=== PATIENT | male | born 1965 | race Caucasian/White ===

== ENCOUNTER 2016-12-12 12:06 | Inpatient (IN) | payer OTHER ==
[2016-11-26 11:43] VITALS: BMI 38.0
--- NOTE | 2016-11-26 12:19 | PAT Medication Instructions ---
Service Date Nov 26, 2016. Current Home Medication List Albuterol Sulfate (Proair Respiclick), 2 PUFFS INH PRN Alprazolam (Xanax), 1 MG PO TID PRN for Anxiety Calcium Carbonate-Vitamin D (Calcium + D), 1 TAB PO QAM Clonazepam (Klonopin), 0.5 MG PO HS Divalproex Sodium (Depakote Er), 1 TAB PO BID Hydrocodone/Acetaminophen 10MG/325MG ([place] 10MG/325MG), 1 TAB PO Q4H PRN for Pain Metformin Hcl (Glucophage), 500 MG PO BID Prazosin Hcl (Prazosin), 1 MG PO HS Propranolol (Inderal), 20 MG PO BID Quetiapine Fumarate (Seroquel), 100 MG PO HS Ranitidine (Zantac), 150 MG PO HS Risperidone (Risperdal), 1 MG PO BID Rosuvastatin Calcium (Crestor), 20 MG PO QAM Sennosides-Docusate Sodium (Stool Softener), 1 TAB PO PRN Trazodone Hcl (Trazodone), 100 MG PO HS Medication Instructions For Your Scheduled Surgery Albuterol Sulfate (Proair Respiclick), 2 PUFFS INH PRN (only uses when sick) - Hold the following medications 48 hours prior to surgery: Metformin Hcl (Glucophage), 500 MG PO BID - Hold the following medications the morning of surgery: Sennosides-Docusate Sodium (Stool Softener), 1 TAB PO PRN Calcium Carbonate-Vitamin D (Calcium + D), 1 TAB PO QAM - Take the following medications the morning of surgery with a sip of water: Rosuvastatin Calcium (Crestor), 20 MG PO QAM Risperidone (Risperdal), 1 MG PO BID Propranolol (Inderal), 20 MG PO BID Hydrocodone/Acetaminophen 10MG/325MG ([place] 10MG/325MG), 1 TAB PO Q4H PRN for Pain (can take up to four hours prior to surgery if needed) Divalproex Sodium (Depakote Er), 1 TAB PO BID Alprazolam (Xanax), 1 MG PO TID PRN for Anxiety - Take the following medications as scheduled the night before surgery: Trazodone Hcl (Trazodone), 100 MG PO HS Risperidone (Risperdal), 1 MG PO BID Quetiapine Fumarate (Seroquel), 100 MG PO HS Ranitidine (Zantac), 150 MG PO HS Propranolol (Inderal), 20 MG PO BID Prazosin Hcl (Prazosin), 1 MG PO HS Hydrocodone/Acetaminophen 10MG/325MG ([place] 10MG/325MG), 1 TAB PO Q4H PRN for Pain Divalproex Sodium (Depakote Er), 1 TAB PO BID Clonazepam (Klonopin), 0.5 MG PO HS Alprazolam (Xanax), 1 MG PO TID PRN for Anxiety If you have any questions please call us at [phone] or [phone] ( [place]) or [phone]
--- NOTE | 2016-11-26 13:01 | DIAGNOSTIC IMAGING REPORT ---
CHEST PREADMISSION(PA/LAT) CLINICAL HISTORY: PAT COMPARISON STUDY: No previous studies for comparison. FINDINGS: The cardiac and mediastinal contours are normal. There is no evidence of focal pulmonary consolidation. There is no evidence of failure. No pleural effusions are visualized.[ IMPRESSION: No active disease in the chest. Electronically signed by: Rudy Warren M.D. 11/26/2016 12:59 PM Dictated Date/Time: 11/26/2016 12:59 PM
[2016-11-26 13:05] LABS: HEMATOCRIT 41.5 % (42-52); MEAN CELL VOLUME 88.1 fL (80-100); MEAN CORPUSCULAR HEMOGLOBIN 30.4 pg (25-34); MEAN CORPUSCULAR HGB CONC 34.5 g/dl (32-36); MEAN PLATELET VOLUME 9.9 fL (7.4-10.4); PLATELET COUNT 181 K/uL (130-400); RED BLOOD COUNT 4.71 M/uL (4.7-6.1)
[2016-11-26 13:07] LABS: URINE APPEARANCE CLEAR (CLEAR); URINE BILIRUBIN NEG (NEG); URINE COLOR YELLOW; URINE NITRITE NEG (NEG); URINE PH 5.5 (4.5-7.5); URINE SPECIFIC GRAVITY 1.023 (1.000-1.030); UROBILINOGEN NEG (NEG)
[2016-11-26 13:14] LABS: MANUAL MICROSCOPIC REQUIRED? NO; REVIEW REQ? NO
[2016-11-26 13:41] LABS: BUN/CREATININE RATIO 9.1 (10-20); CALCIUM 8.6 mg/dl (8.5-10.1); CREATININE 1.1 mg/dl (0.60-1.40); POTASSIUM 4.2 mmol/L (3.5-5.1)
[2016-11-26 14:33] LABS: BASO % 0.4 %; BASO ABS # 0.02 K/uL (0-0.2); COMPLETE YES; EOS % 1.5 %; IG% 0.4 %; LYMPH % 52.7 %; MONO % 9.5 %; NEUT % 35.5 %
[~2016-12-12] VITALS: Ht 180.3 cm; Wt 127.1 kg
[2016-12-12] VITALS (8 sets, daily range): BP systolic 100–147; BP diastolic 72–90; PULSE 64–92; TEMP 36.3–37.1; O2SAT 92–99; Ht 180.3 cm; Wt 127.1 kg
[2016-12-12] MEDS: LACTATED RINGER'S 1000ML 1,000 ML IV SCH ×3 (06:00→18:24)
--- NOTE | 2016-12-12 07:25 | History & Physical Bridge Note ---
H&P Re-Evaluation Bridge Note: I have examined the patient, reviewed the History & Physical and in the interval since the performance of the History & Physical I have noted the following changes of clinical significance: No changes noted
--- NOTE | 2016-12-12 07:26 | History and Physical ---
History & Physical Date Dec 12, 2016. Chief Complaint back and leg pain History of Present Illness The patient is a 51 year old male with complaints of Additional History Hepatic Disease: No Endocrine Disorder: No Kidney Disease: No Hypertension: No Heart Disease: No Bleeding Tendencies: No Infectious Diseases: No Allergies Coded Allergies: Atorvastatin (Verified Allergy, Intermediate, LE myalgias, 11/26/16) Home Medications Scheduled Albuterol Sulfate (Proair Respiclick), 2 PUFFS INH PRN Calcium Carbonate-Vitamin D (Calcium + D), 1 TAB PO QAM Clonazepam (Klonopin), 0.5 MG PO HS Divalproex Sodium (Depakote Er), 1 TAB PO BID Metformin Hcl (Glucophage), 500 MG PO BID Prazosin Hcl (Prazosin), 1 MG PO HS Propranolol (Inderal), 20 MG PO BID Quetiapine Fumarate (Seroquel), 100 MG PO HS Ranitidine (Zantac), 150 MG PO HS Risperidone (Risperdal), 1 MG PO BID Rosuvastatin Calcium (Crestor), 20 MG PO QAM Sennosides-Docusate Sodium (Stool Softener), 1 TAB PO PRN Trazodone Hcl (Trazodone), 100 MG PO HS Scheduled PRN Alprazolam (Xanax), 1 MG PO TID PRN for Anxiety Hydrocodone/Acetaminophen 10MG/325MG ([place] 10MG/325MG), 1 TAB PO Q4H PRN for Pain Physical Examination Skin: warm/dry, no rash Eyes: normal inspection, EOMI, sclerae normal ENT: normal ENT inspection, pharynx normal Head: normocephalic, atraumatic Neck: supple, no adenopathy, trachea midline Respiratory/Chest: lungs clear, normal breath sounds, no respiratory distress Cardiovascular: regular rate, rhythm, no edema, no murmur Abdomen / GI: normal bowel sounds, non tender Back: normal inspection Extremities: normal inspection, normal range of motion Neurologic/Psych: no motor/sensory deficits, alert, normal reflexes, oriented x 3 Diagnosis spinal stenosis Plan of Treatment decompression fusion L2-3
[~2016-12-12 12:06] MED LIST: ALBU18002 INH; ALPR-411 PO; CALC600T9 PO; CEFAZOLIN 3000 MG/65 ML D5W IV SCH; CLON0.5T3 PO; DIVA250T PO; FENTANYL CITRATE INJ 50 MCG/1 ML 2 ML VIAL ONE; GLC/500 PO; HYDR-4079 PO; MIDAZOLAM HCL 1 MG/ML 2ML VIAL ONE; PRAZ1CAP10 PO; PROP20TA67 PO; QUET1TAB34 PO; RISP1TAB68 PO; ROSU20TA PO; SENNTAB23 PO; TRAZ100T29 PO; ZNTT/150 PO
[2016-12-12] MEDS ORDERED: FENTANYL CITRATE INJ 50 MCG/1 ML 2 ML VIAL IV PRN (12:15)
[2016-12-12] MEDS ORDERED: ATROPINE SULFATE 0.1 MG/ML 5ML SYR IV PRN (12:15)
[2016-12-12] MEDS ORDERED: ONDANSETRON INJ 2 MG/ML 2 ML VIAL IV PRN ×2 (12:15→16:15)
[2016-12-12] MEDS ORDERED: MoRPHine SULFATE 10 MG/ML CARP/VIAL IV PRN (12:15)
[2016-12-12] MEDS ORDERED: EpHEDrine SULFATE INJ 50 MG/ML AMP IV PRN (12:15)
[2016-12-12] MEDS ORDERED: BUPIVACAINE/EPINEPHRINE 0.5% MPF 1:200,000 30 ML VIAL INJ ONE (15:04)
[2016-12-12] MEDS ORDERED: FLOSEAL HEMOSTATIC MATRIX 10ML TOP ONE (15:46)
[2016-12-12] MEDS ORDERED: BACITRACIN 50000 UNIT VIAL IR ONE (15:46)
[2016-12-12] MEDS ORDERED: HYDROmorphone INJ 2 MG/ML SYR/VIAL ONE (15:49)
[2016-12-12] MEDS ORDERED: LIDOCAINE HCL 2% 2 ML VIAL (20MG/ML) ONE (15:50)
[2016-12-12] MEDS ORDERED: DEXAMETHASONE SOD INJ 4 MG/ML VIAL ONE (15:50)
[2016-12-12] MEDS ORDERED: PROPOFOL IV EMULSION 10 MG/ML 20 ML VIAL IV ONE (15:50)
[2016-12-12] MEDS ORDERED: GLYCOPYRROLATE INJ 0.2 MG/ML VIAL ONE (15:50)
[2016-12-12] MEDS ORDERED: NEOSTIGMINE METHYLSULFATE 1 MG/ML 10ML VIAL ONE (15:50)
[2016-12-12] MEDS ORDERED: ONDANSETRON INJ 2 MG/ML 2 ML VIAL ONE (15:50)
[2016-12-12] MEDS ORDERED: PHENYLEPHRINE HCL INJ 10 MG/ML VIAL ONE (15:50)
[2016-12-12] MEDS ORDERED: ROCURONIUM BROMIDE 10 MG/ML 5 ML VIAL ONE (15:50)
[2016-12-12] MEDS: SODIUM CHLORIDE 0.9% 1000ML 1,000 ML IV SCH ×2 (16:06→18:22)
--- NOTE | 2016-12-12 16:06 | [facility] Post Operative Brief Note ---
Immediate Operative Summary Operative Date Dec 12, 2016. Pre-Operative Diagnosis Spinal Stenosis L2-L3 Post-Operative Diagnosis Same as preoperative diagnosis Procedure(s) Performed L2-L3 Lumbar Decompression Laminectomy, Discectomy, Placement of Interbody Spacer, Pedicle Screw Fixation, Application of Bone Graft, Application of Bone Morphogenetic Protein and Posteriolateral Gutter Fusion Surgeon Dr. Anselmo Del Rosario Business Project Analyst Surgeon(s) none Estimated Blood Loss 150ml Findings stenosis Specimens None per surgeon
--- NOTE | 2016-12-12 16:09 | DIAGNOSTIC IMAGING REPORT ---
INTRAOPERATIVE RADIOGRAPHS CLINICAL HISTORY: L2-L3 spinal fusion. Fluoroscopy time: 13 seconds. FINDINGS: 2 spot fluoroscopic views of lumbar spine are presented. There is evidence of discectomy at L2-L3 with laminectomy and posterior fusion at this level. Interpedicular screws are present at both levels. The orthopedic hardware appears intact. Fusion hardware is also noted in the lower lumbar spine. IMPRESSION: Intraoperative images from L2 -L3 spinal fusion as above. Electronically signed by: Shyam Schmidt M.D. 12/12/2016 4:08 PM Dictated Date/Time: 12/12/2016 4:07 PM
[2016-12-12] MEDS ORDERED: ALPRAZOLAM 0.5 MG TAB PO PRN (16:15)
[2016-12-12] MEDS ORDERED: BISACODYL 10 MG SUPP PR PRN (16:15)
[2016-12-12] MEDS ORDERED: LORAZEPAM INJ 0.5 MG in SYRINGE 0 ML IV PRN (16:15)
[2016-12-12] MEDS ORDERED: SOD PHOSPHATE/SOD BIPHOSPHATE ENEMA 132 ML BTL PR PRN (16:15)
[2016-12-12] MEDS ORDERED: DO NOT ADMINISTER FLU VACCINE PRN ×3 (16:15)
[2016-12-12] MEDS ORDERED: ACETAMINOPHEN IV 100 ML IV PRN (16:15)
[2016-12-12] MEDS ORDERED: METOCLOPRAMIDE HCL INJ 5 MG/ML 2 ML VIAL IV PRN (16:15)
[2016-12-12] MEDS ORDERED: ACETAMINOPHEN 500 MG TAB PO PRN (16:15)
[2016-12-12] MEDS ORDERED: MAGNESIUM HYDROXIDE SUSP 30 ML UDC PO PRN (16:15)
[2016-12-12] MEDS ORDERED: PROMETHAZINE HCL INJ 12.5 MG in SODIUM CHLORIDE 0.9% 50ML 50 ML IV PRN (16:15)
[2016-12-12] MEDS ORDERED: DO NOT ADMINISTER PNEUMOCOCCAL VACCINE PRN ×2 (16:15)
[2016-12-12] MEDS ORDERED: ALUMINUM/MAGNESIUM SUSP 30 ML UDC PO PRN (16:15)
[2016-12-12] MEDS ORDERED: hydrOXYzine HCL 25 MG TAB PO PRN (16:15)
[2016-12-12] MEDS ORDERED: FAMOTIDINE 20 MG TAB PO PRN (16:15)
[2016-12-12] MEDS ORDERED: LORAZEPAM 0.5 MG TAB PO PRN (16:15)
[2016-12-12] MEDS ORDERED: NALOXONE HCL 0.4 MG/1 ML VIAL/CARP IV PRN (16:15)
[2016-12-12] MEDS ORDERED: FLUMAZENIL 0.1 MG/1 ML 10 ML VIAL IV ONE (16:21)
--- NOTE | 2016-12-12 16:46 | OPERATIVE REPORT ---
DATE OF OPERATION: 12/12/2016 PREOPERATIVE DIAGNOSIS: Spinal stenosis, herniated nucleus pulposus L2-3. POSTOPERATIVE DIAGNOSIS: Same. PROCEDURE PERFORMED: 1. Lumbar decompression, medial facetectomy, and foraminotomy L2-L3. 2. Posterior spinal fusion L2-L3. 3. Placement posterior instrumentation using Orthros rods and screws L2-L3. 4. Interbody fusion L2-L3. 5. Placement of PEEK cage 12 x 26 mm at L2-L3. 6. Placement of locally harvested morcellized autograft in posterior gutters. 7. Placement of Infuse collagen sponge combined with Mastergraft in posterior gutters and DBM in the interbody space. SURGEON: Dr. Anselmo Del Rosario. CUSTOMER DEVELOPMENT MANAGER: None. ANESTHESIA: General. DISPOSITION: The patient awakened and taken to PACU in stable condition. HISTORY OF PATIENT'S PROBLEMS: This is a 51-year-old male that presents with above-mentioned diagnosis. After failing an extensive course of nonoperative care, elected to undergo the above-mentioned procedure. Risks, benefits, pros, cons, and alternatives were outlined in detail preoperatively. OPERATION AND FINDINGS: PROCEDURE: The patient was met preoperatively and the case discussed and all questions were addressed. At that point the patient was taken back to operative suite and after undergoing successful general intubation via department of anesthesia was placed in prone position on Dre table atop Bhavik frame. All bony prominences were well padded and the eyes were inspected to ensure there was no external pressure placed upon them. At this point, lumbar spine was prepped and draped in normal sterile fashion. Sharp dissection with the assistance of Bovie cautery performed down to and exposing the lamina and transverse processes of 2-3. From a caudal to cephalad fashion, complete laminectomy of L2 was performed including medial facetectomies, foraminotomies, evidence of calcified disc on the left was appreciated and removed. Pedicle screws were then placed in L2-3 bilaterally with assistance of fluoroscopy and appropriate size hilary provisionally placed. Through a transforaminal approach on the left, a complete discectomy of L2-L3 was performed, endplates curetted to subcortical bleeding bone and a 12 x 26 mm PEEK cage filled with DBM tapped into position. The rods were then locked into final position bilaterally and transverse processes of 2-3 burred to subcortical bone. Infuse collagen sponge combined with Mastergraft and locally harvested morselized autograft was placed posterior gutters. A 7 flat NAGA drain was inserted. Incision was closed with 1-0 Vicryl in the fascia, 2-0 Vicryl subcutaneously, 4-0 Monocryl for final skin closure. Steri-Strips and sterile dressing placed. The patient was awakened and taken to PACU in stable condition. I attest to the content of the Intraoperative Record and any orders documented therein. Any exceptio ns are noted below.
[2016-12-12] MEDS ORDERED: PHARMACY GLYCEMIC MGMT CONSULT PRN (16:56)
[2016-12-12] MEDS: HYDROmorphone HCL 0.5MG/ML 50 ML CASSETTE IV PRN ×3 (17:11→23:08)
--- NOTE | 2016-12-12 17:11 | Anesthesiology Progress Note ---
Anesthesia Post Op Note Date & Time Dec 12, 2016 at 17:11 Vital Signs Pain Intensity: 0 Vital Signs Past 12 Hours Date Time Temp Pulse Resp B/P Pulse Ox O2 Delivery O2 Flow Rate FiO2 12/12/16 17:00 64 14 112/77 97 Mask 10 12/12/16 16:50 69 16 123/83 96 Mask 10 12/12/16 16:40 76 16 129/82 96 Mask 10 12/12/16 16:34 36.6 80 16 174/77 96 Mask 10 12/12/16 12:44 37.1 73 18 147/90 94 Room Air Notes Mental Status: alert / awake / arousable, participated in evaluation Pt Amnestic to Procedure: Yes Nausea / Vomiting: adequately controlled Pain: adequately controlled Airway Patency, RR, SpO2: stable & adequate BP & HR: stable & adequate Hydration State: stable & adequate Anesthetic Complications: no major complications apparent
[2016-12-12] MEDS ORDERED: GLUCOSE 10 TABS/TUBE PO PRN (17:15)
[2016-12-12] MEDS ORDERED: DEXTROSE 50% 50 ML SYR IV PRN (17:15)
[2016-12-12] MEDS ORDERED: GLUCOSE 40% GEL 15 GM TUBE PO PRN (17:15)
[2016-12-12] MEDS ORDERED: GLUCAGON FOR INJ 1 MG VIAL SQ PRN (17:15)
--- NOTE | 2016-12-12 18:42 | Pharmacy Progress Note ---
Glycemic Control Intl Consult Date of Service Dec 12, 2016. Scope Glycemic Pharmacist consulted by Dr Del Rosario on 12/12/16 for glycemic control and to write orders per [facility] inpatient glycemic control protocol Objective Weight (Kilograms): 127.10 Accuchecks BSG (last 24hrs): Test 12/12/16 13:25 12/12/16 16:40 12/12/16 17:59 Bedside Glucose 88 mg/dl (70-99) 135 mg/dl (70-99) 127 mg/dl (70-99) HbA1c outdated, last A1c = 5.2% on 12/06/15 Recent Pertinent Medications Outpatient Anti-diabetic Regimen: * Metformin 500mg PO BID Risk Factors for Insulin Resistance: * Steroids * Recent Surgery * Diet Assessment & Plan ASSESSMENT: * 51yo T2DM male with unknown degree of outpatient control on metformin monotherapy - A1c is outdated. Will re-order per protocol * Metformin should be held post-operatively x ~48hrs or until renal function & PO intake adequate * Will use SQ basal bolus insulin regimen while oral agents on hold * Pt is insulin naive - will use weight/stress based dosing and titrate based on BSG trends * Pt received high dose IV DXM intraop and will receive 3 doses post-operative. This will most likely cause severe steroid induced hyperglycemia. * ADA & AACE recommend a goal blood sugar range 140-180 mg/dl for the majority of critically ill & non-critically ill patients. However, more stringent targets may be selected in individual cases. Will utilize more stringent goal range of 110-140mg/dl for a young patient. Also, tight glycemic control warranted to facilitate healing post-operatively. PLAN FOR INPATIENT GLYCEMIC CONTROL: * Hold outpatient oral diabetes medications * Basal insulin with LANTUS Q24hrs dosing based on BSG for insulin naive patient * If BSG 120mg/dl or below --> Do not administer Lantus * If BSG 121-179mg/dl --> Administer Lantus 10 units SQ HS * If BSG 180mg/dl or above --> Administer Lantus 20 units SQ HS * Correctional Insulin with NOVOLOG per scale ACHS or Q6hrs while NPO. Will consider overnight checks if sustained hyperglycemia occurs. * Goal Range: Low 110 mg/dL - High 140 mg/dL * Correction Factor: 20 mg/dL/unit * Nutritional / Prandial insulin per carb ratio of 1 unit per 6 grams CHO consumed * Please note that the plan above was derived based on current level of insulin resistance and hospital stress. These recommendations are appropriate for inpatient admission only. Plan of care upon discharge will need to be reassessed to avoid potential outpatient hypo/hyperglycemia. Thank you.
[2016-12-12] MEDS ORDERED: RISPERIDONE 1 MG TAB PO SCH (21:00)
[2016-12-12] MEDS: INSULIN ASPART 100 UNITS/ML 3 ML PEN SC SCH (21:00)
[2016-12-12] MEDS ORDERED: INSULIN GLARGINE SOLOSTAR 100 UNITS/ML 3 ML PEN SC SCH (21:00)
[2016-12-12] MEDS: PROPRANOLOL HCL 20 MG TAB PO SCH (22:32)
[2016-12-12] MEDS: TRAZODONE HCL 100 MG TAB PO SCH (22:32)
[2016-12-12] MEDS: PRAZOSIN HCL 1 MG CAP PO SCH (22:32)
[2016-12-12] MEDS: DIVALPROEX 250 MG EXTENDED REL TAB PO SCH (22:34)
[2016-12-12] MEDS: QUETIAPINE FUMARATE 100 MG TAB PO SCH (22:34)
[2016-12-12] MEDS: DOCUSATE SODIUM/SENNA 50/8.6MG TAB PO SCH (22:35)
[2016-12-12] MEDS: RANITIDINE HCL 150 MG TAB PO SCH (22:35)
[2016-12-12] MEDS: CEFAZOLIN IV 3,000 MG in DEXTROSE 5% 50ML 50 ML IV SCH (22:37)
[2016-12-12] MEDS: CLONAZEPAM 0.5 MG TAB PO SCH (22:37)
[2016-12-13] VITALS (8 sets, daily range): BP systolic 113–159; BP diastolic 63–82; PULSE 71–91; TEMP 36.6–36.9; O2SAT 90–95
[2016-12-13] MEDS: DEXAMETHASONE INJ 6 MG in SYRINGE 0 ML IV SCH ×3 (00:46→16:00)
[2016-12-13] MEDS: LACTATED RINGER'S 1000ML 1,000 ML IV SCH ×2 (00:47→05:50)
[2016-12-13] MEDS: NALOXONE HCL 0.4 MG/1 ML VIAL/CARP IV PRN ×2 (00:55→04:49)
--- NOTE | 2016-12-13 02:44 | History and Physical ---
History & Physical Date & Time of Service: Dec 13, 2016 at 02:24 Chief Complaint: Lumbar Spinal Stenosis Primary Care Physician: Isai Henao M.D. History of Present Illness Source: patient, clinic records This is a 51 yo m s/p L2-L3 lumbar decompression laminectomy/ discectomy that we have been consulted for acute changes in his respiratory status. At approx 0035 the RN had noticed that the patient was rather drowsy and had pinpoint pupils. She was able to catch his respiratory rate t 6 breath per minute so she placed him on 3 L of oxygen. She quickly administered Narcan 0.1 mg. After administration, the patient has had improved mentation as well as respiratory drive. He currently states that he does have back pain but otherwise feeling well. He is oriented and when asked if he could tell me what happened he was able to discuss the events.This was at 1 hour after the Narcan administration. was at bedside during discussion. He has a rather extensive psych history which revolves around anxiety. For his anxiety, he was given Klonopin 0.5 mg, Quetiapine 100 mg, Risperidone 1 mg and Trazodone 100 mg. He was also on a Hydromorphine [employer]IDENT [employer]ER pump for pain control. The combination of these medications may have made him more susceptible to increased sedation as well as the respiratory depression. During chart review, he also has a h/o of sleep apnea however no information on CPAP could be found. This may have also attributed to the hypoxia. Past Medical/Surgical History Anxiety GERD Benign familial tremor degenerative disc disease Dyslipidemia Sleep apnea DMII Family History Depression Diabetes mellitus Hypertension Social History Smoking Status: Never Smoker Smokeless Tobacco Use: No Alcohol Use: none Drug Use: none Marital Status: Housing status: lives with family Occupational Status: disabled Immunizations History of Influenza Vaccine: No History of Tetanus Vaccine?: No History of Pneumococcal: No History of Hepatitis B Vaccine: No Multi-Drug Resistant Organisms History of MDRO: No Allergies Coded Allergies: Atorvastatin (Verified Allergy, Intermediate, LE myalgias, 12/12/16) Home Medications Scheduled Albuterol Sulfate (Proair Respiclick), 2 PUFFS INH PRN Calcium Carbonate-Vitamin D (Calcium + D), 1 TAB PO QAM Clonazepam (Klonopin), 0.5 MG PO HS Divalproex Sodium (Depakote Er), 1 TAB PO BID Metformin Hcl (Glucophage), 500 MG PO BID Prazosin Hcl (Prazosin), 1 MG PO HS Propranolol (Inderal), 20 MG PO BID Quetiapine Fumarate (Seroquel), 100 MG PO HS Ranitidine (Zantac), 150 MG PO HS Risperidone (Risperdal), 1 MG PO BID Rosuvastatin Calcium (Crestor), 20 MG PO QAM Sennosides-Docusate Sodium (Stool Softener), 1 TAB PO PRN Trazodone Hcl (Trazodone), 100 MG PO HS Scheduled PRN Alprazolam (Xanax), 1 MG PO TID PRN for Anxiety Hydrocodone/Acetaminophen 10MG/325MG ([place] 10MG/325MG), 1 TAB PO Q4H PRN for Pain Review of Systems Constitutional: No fever Eyes: No worsening of vision ENT: No hearing loss Respiratory: No cough, No dyspnea at rest, No dyspnea on exertion, No shortness of breath, No sputum, No wheezing Cardiovascular: No chest pain Abdomen: No constipation, No diarrhea, No nausea, No pain, No vomiting Musculoskeletal: + joint pain (post operative pain, expected), + muscle pain Neurologic: No memory loss, No numbness/tingling Endocrine: No fatigue Physical Exam Vital Signs Date Time Temp Pulse Resp B/P Pulse Ox O2 Delivery O2 Flow Rate FiO2 12/12/16 23:27 36.6 92 6 115/80 93 Mask 3.0 12/12/16 20:51 36.6 88 16 100/72 95 Nasal Cannula 4.0 12/12/16 20:38 36.3 89 18 128/87 93 Nasal Cannula 4.0 12/12/16 19:35 36.3 86 18 127/85 94 Nasal Cannula 4.0 12/12/16 18:29 36.3 80 16 115/73 94 Nasal Cannula 4.0 12/12/16 18:15 36.3 82 18 146/90 92 Nasal Cannula 4.0 12/12/16 17:30 36.6 64 16 136/76 94 Nasal Cannula 4.0 12/12/16 17:30 99 Mask 5.0 12/12/16 17:30 99 Mask 5.0 12/12/16 17:20 68 14 130/85 97 Mask 5 12/12/16 17:10 36.5 68 14 149/73 97 Mask 5 12/12/16 17:00 64 14 112/77 97 Mask 10 12/12/16 16:50 69 16 123/83 96 Mask 10 12/12/16 16:40 76 16 129/82 96 Mask 10 12/12/16 16:34 36.6 80 16 174/77 96 Mask 10 12/12/16 12:44 37.1 73 18 147/90 94 Room Air General Appearance: WD/WN, no apparent distress Head: normocephalic, atraumatic Eyes: normal inspection, + pertinent finding (reactive but pintpoint pupils) ENT: normal ENT inspection Neck: supple Respiratory/Chest: lungs clear, normal breath sounds, no respiratory distress, no accessory muscle use Cardiovascular: regular rate, rhythm, no murmur Abdomen/GI: normal bowel sounds, non tender, soft Extremities/Musculoskelatal: no calf tenderness, no pedal edema Neurologic/Psych: no motor/sensory deficits, alert Skin: normal color, warm/dry, no rash Lymphatic: no adenopathy Diagnostics Laboratory Results Results Past 24 Hours Test 12/12/16 13:25 12/12/16 16:40 12/12/16 17:59 12/12/16 21:05 Range/Units Bedside Glucose 88 135 127 135 70-99 mg/dl Test 12/13/16 01:02 Range/Units Bedside Glucose 131 70-99 mg/dl Impression Assessment and Plan Documented By: Shay Ac This is a 51 yo m which had a drug reaction resulting in acute hypoxic respiratory distress. He is doing well one hour after administration of narcan. Thoughts that it may have been r/t [employer]IDENT [employer] F[employer]ER and multiple sedating medications the patient was using. Acute hypoxic respiratory distress - iatrogenic - Patient is currently being monitored by RN for worsening respiratory status, currently stable - will hold his Risperidone in the am - will d/c PRESIDENT [employer] F[employer]ER - Non narcotic pain control for now, restart later this morning - Narcan is available prn - O2 per nursing protocol - continuous O2 monitoring Anxiety - Continue Klonopin, Quetiapine, Risperidone (hs), trazodone qhs - according to the chart review patient has a lot of anxiety about changing base anxiety medications - hold his am dose of Risperidone as the patient may still suffer from excess sedation - Will hold Alprazolam Benign Familial Tremor - Continue Depakote and Propranolol DM - Will defer to pharmacy under gylcemic consult Sleep Apnea - CPAP was ordered Resident Physician Supervision Note: I was present with [Name of resident] during the history and exam. I discussed the case with the resident and agree with the findings and plan as documented in the note. Any exceptions or clarifications are listed here: Pt seen/examined and management discussed with resident Called to see pt as he was hypoventilating following surgery This was likely due to receiving his normal dose of PM sedatives and a narcotic pump following surgery. He responded to a dose of Narcan and was AAOx3 at the time of evaluation however he has a tendency to desat as he falls asleep His resp rate has been borderline at 12 indicating that he is not properly compensating for deasaturation - this is again likely an opiate effect P: CXR Additional dose of Narcan Bipap recommended however pt has not tolerated so that we will use NRB if refuses Eval for YANELI recommended Will monitor closely in conjunction with nursing Level of Care Med/Surg Advanced Directives Existing Advance Directive: Yes Existing Living Will: Yes Existing Power of Car Groomer: Yes Resuscitation Status FULL RESUSCITATION VTE Prophylaxis VTE Risk Assessment Done? Y/N: Yes Risk Level: Low Given or contraindicated: SCD's Note Total Time: Critical Care 30 - 74 minutes Additional Copies To Isai Henao M.D.
[2016-12-13] MEDS: CEFAZOLIN IV 3,000 MG in DEXTROSE 5% 50ML 50 ML IV SCH (05:50)
[2016-12-13] MEDS ORDERED: HYDROmorphone INJ 0.5 MG/0.5 ML SYR IV PRN (06:00)
[2016-12-13] MEDS ORDERED: OXYCODONE HCL IR 5 MG TAB (IMMEDIATE RELEASE) PO PRN (06:00)
[2016-12-13] MEDS ORDERED: DC PCA ONE (06:00)
--- NOTE | 2016-12-13 06:09 | DIAGNOSTIC IMAGING REPORT ---
CHEST ONE VIEW PORTABLE CLINICAL HISTORY: hypoxia dyspnea COMPARISON STUDY: 11/26/2016 FINDINGS: The bones soft tissues and hemidiaphragms are normal. The cardiomediastinal silhouette is normal. The lungs are clear. The pulmonary vasculature is normal. IMPRESSION: Negative chest. Electronically signed by: Freddy Lal M.D. 12/13/2016 6:08 AM Dictated Date/Time: 12/13/2016 6:08 AM
[2016-12-13 06:51] LABS: BASO % 0.1 %; BASO ABS # 0.01 K/uL (0-0.2); COMPLETE YES; HEMATOCRIT 38.5 % (42-52); IG% 0.3 %; LYMPH % 15.8 %; LYMPH ABS # 1.76 K/uL (1.2-3.4); MEAN CELL VOLUME 88.5 fL (80-100); MEAN CORPUSCULAR HEMOGLOBIN 29.2 pg (25-34); MEAN PLATELET VOLUME 9.9 fL (7.4-10.4); MONO % 5.5 %; NEUT % 78.3 %; PLATELET COUNT 184 K/uL (130-400); RED BLOOD COUNT 4.35 M/uL (4.7-6.1); WHITE BLOOD COUNT 11.11 K/uL (4.8-10.8)
[2016-12-13 07:23] LABS: BUN/CREATININE RATIO 10.8 (10-20); CALCIUM 8.9 mg/dl (8.5-10.1); CREATININE 1.5 mg/dl (0.60-1.40); POTASSIUM 4.6 mmol/L (3.5-5.1)
[2016-12-13] MEDS ORDERED: KETOROLAC TROMETHAMINE 30 MG/ML VIAL IV PRN (08:15)
[2016-12-13] MEDS ORDERED: RXC5 PO (08:19)
--- NOTE | 2016-12-13 08:20 | Discharge Instructions ---
Discharge Instructions Admission Reason for Admission: Lumbar Spinal Stenosis Discharge Discharge Diagnosis / Problem: stenosis Discharge Goals Goal(s): Improve function Activity Recommendations Activity Limitations: per Instructions/Follow-up section . Instructions / Follow-Up Instructions / Follow-Up ACTIVITY RECOMMENDATIONS: SELF CARE INSTRUCTIONS AFTER THORACIC/LUMBAR FUSIONS 1. You may walk to your tolerance. It is good exercise for your legs and back. Expect some back and intermittent leg aches and pains. 2. You may perform "counter-top" level activities (make a sandwich, sunshine with a project, etc.). 3. No bending or lifting of more than 10 pounds or back twisting of any nature (roll like a log when turning in bed). 4. You may ride in a car for 20-30 minutes at a time. No driving until after your first visit with your doctor. 5. Frequent changes of position and restricting sitting to 30 minutes at a time will help limit the amount of back spasms and stiffness you may experience. 6. You may discontinue the use of ambulatory aids (cane, crutches, etc.) once your strength and confidence allow. 7. You may commercial lending relationship manager the shower and let water strike your incision when you arrive home at least once daily. Do not take a tub bath, sit in a hot tub or go into a swimming pool until after your first recheck in the office. SPECIAL CARE INSTRUCTIONS: VERY IMPORTANT TO READ AND REVIEW A. Your surgical incision has been closed with a cosmetic suture under the skin that will dissolve in about 6 weeks. In 14 days, you can use a pair of clean scissors and cut the suture that is left outside of the skin at the ends of your incision. 1. The small skin tapes can be removed 7 days after surgery if they have not fallen off by that point. 2. You may keep the wound open to air as much as possible to promote healing after post-op day number 5 unless told otherwise by your doctor. 3. If you think the wound looks like it is becoming infected (redness or worsening drainage) and/or you are experiencing fever, chill or worsening back pain and muscle spasms, contact the office so that we may evaluate you as soon as possible. B. Complications are uncommon, but please contact us if you have any signs or symptoms of: 1. wound infection (fever higher than 102.5 degrees F, redness, separation of wound, drainage, or increasing pain from the incision) 2. blood clots in legs (pain, swelling, redness and warmth in legs) 3. urinary tract infection (fever higher than 102.5 degrees F, burning upon urination or increased frequency of urination) 4. nerve problems (inability to walk on your toes or heels, numbness, loss of bowel or bladder control) 5. any other symptoms that concern you C. Please call the office at if you have any concerns or questions about your operation or recovery. D. No smoking! Smoking drastically decreases the chance of a solid fusion. E. Do not take any anti-inflammatory medications (Indocin, Advil, Motrin, Aspirin, Naprosyn, etc.) as these may inhibit the chance of a solid fusion. Tylenol is okay to take for pain. MANAGING PAIN AFTER SPINAL SURGERY 1. Narcotic medication is intended for short-term use and will be provided for surgical pain. Surgical pain usually lasts for a period of 4-6 weeks. Narcotic medication includes Percocet, Vicodin, Darvocet, Tylenol #3 or Lortab. 2. Longer-term pain is more appropriately treated with non-narcotic medication such as Tylenol ES. 3. Muscle spasm is not appropriately treated with narcotics. Muscle relaxers such as Soma, Flexeril or Skelaxin can be used along with Tylenol ES. 4. Remember that we all live with some "aches and pains". This is not unusual or uncommon after an injury or as we get older. a. Back pain is expected and may include muscle spasms for 4 to 6 weeks after surgery. The pain should gradually improve. If the pain worsens for no apparent reason, please contact the office. b. Intermittent leg pain may also be experienced and should not be concerned about unless it worsens for no apparent reason. If so, please contact the office. 5. We will provide appropriate medication within the normal guidelines of their prescribed use. We will also be very cautious and aware of potential abuse and extended duration of patients' medication needs. a. Pain medications are for your comfort and to assist with sleep and rest so that the tissue can heal. They are not provided in order to return to normal activity and should not be used through the day. To do so or worsening pain at night can result from ongoing tissue damage and development of tolerance to the prescribed medicine. 6. Please allow 2-3 days to process refills. Prescriptions will not be mailed but must be picked up at the office. FOLLOW UP VISIT: Keep your scheduled follow-up appointment. Any questions, please call the office at . Current Hospital Diet Patient's current hospital diet: Diabetes Type 2 Diet Discharge Diet Recommended Diet: Regular Diet Procedures Procedures Performed: L2-L3 Lumbar Decompression Laminectomy, Discectomy, Placement of Interbody Spacer, Pedicle Screw Fixation, Application of Bone Graft, Application of Bone Morphogenetic Protein and Posteriolateral Gutter Fusion Pending Studies Studies pending at discharge: no Laboratory Results Hemoglobin A1c Test 12/13/16 05:53 Range/Units Medical Emergencies . Who to Call and When: Medical Emergencies: If at any time you feel your situation is an emergency, please call 911 immediately. . Non-Emergent Contact Non-Emergency issues call your: Primary Care Provider . "Provider Documentation" section prepared by Anselmo Del Rosario. VTE Core Measure Inpt VTE Proph given/why not?: Edwin Huff, SCD's
[2016-12-13] MEDS: ROSUVASTATIN CALCIUM 20 MG TAB PO SCH (08:21)
[2016-12-13] MEDS: DIVALPROEX 250 MG EXTENDED REL TAB PO SCH ×2 (08:21→20:49)
[2016-12-13] MEDS: PROPRANOLOL HCL 20 MG TAB PO SCH ×2 (08:22→20:49)
--- NOTE | 2016-12-13 08:35 | PROGRESS NOTE ---
DATE: 12/13/2016 DATE: 12/13/2016. SUBJECTIVE: Postop day 1, back pain controlled, leg pain improved. Vital signs stable. T-max 36.7. NAGA drained 15 mL. Hematocrit this a.m. is 38.5. OBJECTIVE: On exam he has good strength to testing, appears comfortable. ASSESSMENT: Status post lumbar decompression and fusion. PLAN: At this time we will initiate physical therapy, advance his bowel regimen, anticipate home tomorrow.
[2016-12-13 08:57] LABS: ESTIMATED AVERAGE GLUCOSE 100 mg/dl; HA1C FLAG Normal (Normal)
[2016-12-13] MEDS: INSULIN ASPART 100 UNITS/ML 3 ML PEN SC SCH ×4 (09:26→22:00)
--- NOTE | 2016-12-13 10:00 | Anesthesiology Progress Note ---
Anesthesia Post Op Note Date & Time Dec 13, 2016 at 09:59 Vital Signs Pain Intensity: 6.0 Vital Signs Past 12 Hours Date Time Temp Pulse Resp B/P Pulse Ox O2 Delivery O2 Flow Rate FiO2 12/13/16 08:23 36.7 91 16 159/78 95 Nasal Cannula 3.0 12/13/16 07:20 Nasal Cannula 3.0 12/13/16 03:18 36.7 82 16 128/82 93 Room Air 12/13/16 03:05 78 94 2.0 12/13/16 00:20 6 95 Mask 3.0 12/13/16 00:20 95 Mask 3.0 12/12/16 23:27 36.6 92 6 115/80 93 Mask 3.0 Notes Mental Status: alert / awake / arousable, participated in evaluation Pt Amnestic to Procedure: Yes Nausea / Vomiting: adequately controlled Pain: adequately controlled Airway Patency, RR, SpO2: stable & adequate BP & HR: stable & adequate Hydration State: stable & adequate Anesthetic Complications: no major complications apparent
--- NOTE | 2016-12-13 10:06 | Pharmacy Progress Note ---
Glycemic Control: Progress Nt Date of Service Dec 13, 2016. Scope Glycemic Pharmacist consulted by Dr Del Rosario on 12/12/16 for glycemic control and to write orders per [facility] inpatient glycemic control protocol. Objective Accuchecks BSG (last 24hrs): Test 12/12/16 13:25 12/12/16 16:40 12/12/16 17:59 12/12/16 21:05 Bedside Glucose 88 mg/dl (70-99) 135 mg/dl (70-99) 127 mg/dl (70-99) 135 mg/dl (70-99) Test 12/13/16 01:02 12/13/16 05:53 12/13/16 07:24 Bedside Glucose 131 mg/dl (70-99) 137 mg/dl (70-99) Random Glucose 144 mg/dl (70-99) Laboratory Data (last 24hrs) Test 12/13/16 05:53 Anion Gap 12.0 mmol/L BUN/Creatinine Ratio 10.8 Blood Urea Nitrogen 16 mg/dl Creatinine 1.50 mg/dl Hemoglobin A1c 5.1 % Potassium Level 4.6 mmol/L Sodium Level 139 mmol/L White Blood Count 11.11 K/uL Red Blood Count 4.35 M/uL Hemoglobin 12.7 g/dL Hematocrit 38.5 % Mean Corpuscular Volume 88.5 fL Mean Corpuscular Hemoglobin 29.2 pg Mean Corpuscular Hemoglobin Concent 33.0 g/dl Platelet Count 184 K/uL Mean Platelet Volume 9.9 fL Neutrophils (%) (Auto) 78.3 % Lymphocytes (%) (Auto) 15.8 % Monocytes (%) (Auto) 5.5 % Eosinophils (%) (Auto) 0.0 % Basophils (%) (Auto) 0.1 % Neutrophils # (Auto) 8.70 K/uL Lymphocytes # (Auto) 1.76 K/uL Monocytes # (Auto) 0.61 K/uL Eosinophils # (Auto) 0.00 K/uL Basophils # (Auto) 0.01 K/uL HbA1c: Test 12/13/16 05:53 Hemoglobin A1c 5.1 % (4.5-5.6) Recent Pertinent Medications Outpatient Anti-diabetic Regimen: * Metformin 500mg PO BID The patient is currently receiving: * Basal insulin with LANTUS Q24hrs dosing based on BSG for insulin naive patient * If BSG 120mg/dl or below --> Do not administer Lantus * If BSG 121-179mg/dl --> Administer Lantus 10 units SQ HS - pt received 10 units last night * If BSG 180mg/dl or above --> Administer Lantus 20 units SQ HS * Correctional Insulin with NOVOLOG per scale ACHS or Q6hrs while NPO. Will consider overnight checks if sustained hyperglycemia occurs. * Goal Range: Low 110 mg/dL - High 140 mg/dL * Correction Factor: 20 mg/dL/unit * Nutritional / Prandial insulin per carb ratio of 1 unit per 6 grams CHO consumed Risk Factors for Insulin Resistance: * Steroids: Dexamethasone 12mg IV x1 dose yesterday, then 6mg IV Q8H X3 doses post op * Recent Surgery: POD#1 lumbar decompression and fusion * Diet: Type 2 DM Assessment & Plan ASSESSMENT: 12/12/16 * 51yo T2DM male with unknown degree of outpatient control on metformin monotherapy - A1c is outdated. Will re-order per protocol * Metformin should be held post-operatively x ~48hrs or until renal function & PO intake adequate * Will use SQ basal bolus insulin regimen while oral agents on hold * Pt is insulin naive - will use weight/stress based dosing and titrate based on BSG trends * Pt received high dose IV DXM intraop and will receive 3 doses post-operative. This will most likely cause severe steroid induced hyperglycemia. * ADA & AACE recommend a goal blood sugar range 140-180 mg/dl for the majority of critically ill & non-critically ill patients. However, more stringent targets may be selected in individual cases. Will utilize more stringent goal range of 110-140mg/dl for a young patient. Also, tight glycemic control warranted to facilitate healing post-operatively. 12/13/16 * A1c 5.1%, and BSGs at goal with only 10 units of Lantus as TDD of insulin yesterday * I will discontinue Lantus as patient only has 1 more dose of IV Dexamethasone and BSGs at goal * Also loosen CF and CR to prevent hypoglycemia, may be able to restart Metformin tomorrow and cut CR tomorrow if not needed PLAN FOR INPATIENT GLYCEMIC CONTROL: * Hold outpatient oral diabetes medications * Restart Metformin tomorrow * Discontinue Lantus * Correctional Insulin with NOVOLOG per scale ACHS or Q6hrs while NPO * Goal Range: Low 110 mg/dL - High 140 mg/dL * LOOSEN:Correction Factor: 30 mg/dL/unit * LOOSEN: Nutritional / Prandial insulin per carb ratio of 1 unit per 12 grams CHO consumed * Please note that the plan above was derived based on current level of insulin resistance and hospital stress. These recommendations are appropriate for inpatient admission only. Plan of care upon discharge will need to be reassessed to avoid potential outpatient hypo/hyperglycemia. Thank you.
[2016-12-13] MEDS ORDERED: NURSING VERBAL MED ORDER ONE (11:15)
[2016-12-13] MEDS: HYDROCODONE/ACETAMI 10/325 TAB PO PRN ×3 (11:25→21:57)
--- NOTE | 2016-12-13 12:36 | Hospitalist Progress Note ---
Hospitalist Progress Note Date of Service Dec 13, 2016. Subjective Pt evaluation today including: conversation w/ patient, physical exam, chart review, lab review, review of studies, review of inpatient medication list Patient states that he feels better today than the day prior Patient denies any chest pain or SOB. No issues of respiratory distress after 2 doses of narcan given Constitutional: No fever Eyes: No worsening of vision ENT: No hearing loss Respiratory: No cough, No shortness of breath Cardiovascular: No chest pain, No edema Abdomen: No constipation, No pain, No vomiting Musculoskeletal: No joint pain Male : No dysuria Neurologic: No memory loss, No weakness Psychiatric: No depression symptoms Heme: No abnormal bleeding/bruising Endo: No fatigue Skin: No itch, No rash Medications Current Inpatient Medications Medications (Trade) Dose Ordered Sig/Mona Route Start Time Stop Time Status Last Admin Dose Admin Dexamethasone Sodium Phosphate 6 mg/Syringe 1.5 ml @ 1 mls/min Q8H IV 12/13/16 00:00 12/13/16 16:02 12/13/16 08:17 1 MLS/MIN Promethazine HCl/ Sodium Chloride (Phenergan Inj/ Nss 50ml) 50.5 ml @ 202 mls/hr Q6H PRN IV 12/12/16 16:15 01/11/17 16:14 Ondansetron HCl (Zofran Inj) 4 mg Q6H PRN IV 12/12/16 16:15 01/11/17 16:14 Metoclopramide HCl (Reglan Inj) 10 mg Q6H PRN IV 12/12/16 16:15 01/11/17 16:14 Lorazepam 0.5 mg 0.5 mg Q8H PRN PO 12/12/16 16:15 01/11/17 16:14 Lorazepam/Syringe (Ativan Inj/ Syringe) 0.25 ml @ 1 mls/min Q8H PRN IV 12/12/16 16:15 01/11/17 16:14 Future Hold Pneumococcal Polysaccharide Vaccine 1 ea PRN PRN N/A 12/12/16 16:15 01/11/17 16:14 Influenza Virus Vacc Triv Types A&B 1 ea PRN PRN N/A 12/12/16 16:15 01/11/17 16:14 Polyethylene (Miralax Powder Packet) 17 gm Q6 PO 12/14/16 06:00 01/13/17 05:59 Bisacodyl (Dulcolax Supp) 10 mg DAILY PRN VT 12/12/16 16:15 01/11/17 16:14 Magnesium Hydroxide (Milk Of Magnesia Susp) 30 ml DAILY PRN PO 12/12/16 16:15 01/11/17 16:14 Hydromorphone HCl (Dilaudid Inj) 0.5-1mg prn moder... Q3H PRN IV 12/13/16 06:00 12/27/16 05:59 Oxycodone HCl (Roxicodone Immediate Rel Tab) 5-10mg prn moderate to sev... Q4H PRN PO 12/13/16 06:00 12/27/16 05:59 Acetaminophen 1000 mg 1,000 mg Q8H PRN PO 12/12/16 16:15 01/11/17 16:14 Acetaminophen (Ofirmev Iv) 100 ml @ 400 mls/hr Q8H PRN IV 12/12/16 16:15 01/11/17 16:14 Naloxone HCl (Narcan Inj) 0.1 mg Q5M PRN IV 12/12/16 16:15 01/11/17 16:14 12/13/16 04:49 0.1 MG Senna/Docusate Sodium (Senokot S Tab) 2 tab HS PO 12/12/16 21:00 01/11/17 20:59 12/12/16 22:35 2 TAB Sodium Biphosphate/ Sodium Phosphate (Fleet Enema) 132 ml ONE PRN VT 12/12/16 16:15 01/11/17 16:14 Hydroxyzine HCl (Vistaril Tab) 25 mg Q8H PRN PO 12/12/16 16:15 01/11/17 16:14 Al Hydroxide/Mg Hydroxide (Maalox Susp) 30 ml Q6H PRN PO 12/12/16 16:15 01/11/17 16:14 Famotidine (Pepcid Tab) 20 mg Q12 PRN PO 12/12/16 16:15 01/11/17 16:14 Diphenhydramine HCl (Benadryl Cap) 25 mg Q6H PRN PO 12/12/16 16:15 01/11/17 16:14 Alprazolam (Xanax Tab) 1 mg TID PRN PO 12/12/16 16:15 01/11/17 16:14 Future Hold Clonazepam (Klonopin Tab) 0.5 mg HS PO 12/12/16 21:00 01/11/17 20:59 12/12/16 22:37 0.5 MG Divalproex Sodium (Depakote Extended Rel Tab) 250 mg BID PO 12/12/16 21:00 01/11/17 20:59 12/13/16 08:21 250 MG Acetaminophen/ Hydrocodone Bitart ([place] 10/325 Tab) 1 tab Q4H PRN PO 12/13/16 06:00 12/27/16 05:59 12/13/16 11:25 1 TAB Propranolol HCl (Inderal Tab) 20 mg BID PO 12/12/16 21:00 01/11/17 20:59 12/13/16 08:22 20 MG Quetiapine Fumarate (seroQUEL TAB) 100 mg HS PO 12/12/16 21:00 01/11/17 20:59 12/12/16 22:34 100 MG Ranitidine HCl (zANTac TAB) 150 mg HS PO 12/12/16 21:00 01/11/17 20:59 12/12/16 22:35 150 MG Risperidone (Risperdal Tab) 1 mg BID PO 12/12/16 21:00 01/11/17 20:59 Future Hold 12/12/16 22:33 1 MG Rosuvastatin Calcium (Crestor Tab) 20 mg QAM PO 12/13/16 09:00 01/12/17 08:59 12/13/16 08:21 20 MG Trazodone HCl (Desyrel Tab) 100 mg HS PO 12/12/16 21:00 01/11/17 20:59 12/12/16 22:32 100 MG Prazosin HCl (Prazosin) 1 mg HS PO 12/12/16 21:00 01/11/17 20:59 12/12/16 22:32 1 MG Miscellaneous Information (Consult Glycemic Management Pharmacy) 1 ea UD PRN N/A 12/12/16 16:56 01/11/17 16:55 Insulin Aspart (novoLOG ASPART) SLIDING SCALE ACHS SC 2/1/17 17:15 01/11/17 17:14 12/13/16 09:26 4 UNITS Glucose (Glucose 40% Gel) 15-30 GRAMS 15 GRAMS... UD PRN PO 12/12/16 17:15 01/11/17 17:14 Glucose (Glucose Chew Tab) 4-8 Tablets 4 Tabl... UD PRN PO 12/12/16 17:15 01/11/17 17:14 Dextrose (Dextrose 50% 50ML Syringe) 25-50ML OF 50% DW IV FOR... UD PRN IV 12/12/16 17:15 01/11/17 17:14 Glucagon (Glucagon Inj) 1 mg UD PRN SQ 12/12/16 17:15 01/11/17 17:14 Ketorolac Tromethamine (Toradol Inj) 30 mg Q6H PRN IV 12/13/16 08:15 12/18/16 08:14 12/13/16 08:43 30 MG Objective Vital Signs Date Time Temp Pulse Resp B/P Pulse Ox O2 Delivery O2 Flow Rate FiO2 12/13/16 11:17 93 Room Air 12/13/16 10:34 16 92 Room Air 12/13/16 08:23 36.7 91 16 159/78 95 Nasal Cannula 3.0 12/13/16 07:20 Nasal Cannula 3.0 12/13/16 03:18 36.7 82 16 128/82 93 Room Air 12/13/16 03:05 78 94 2.0 12/13/16 00:20 6 95 Mask 3.0 12/13/16 00:20 95 Mask 3.0 12/12/16 23:27 36.6 92 6 115/80 93 Mask 3.0 12/12/16 20:51 36.6 88 16 100/72 95 Nasal Cannula 4.0 12/12/16 20:38 36.3 89 18 128/87 93 Nasal Cannula 4.0 12/12/16 19:35 36.3 86 18 127/85 94 Nasal Cannula 4.0 12/12/16 18:29 36.3 80 16 115/73 94 Nasal Cannula 4.0 12/12/16 18:15 36.3 82 18 146/90 92 Nasal Cannula 4.0 12/12/16 17:30 36.6 64 16 136/76 94 Nasal Cannula 4.0 12/12/16 17:30 99 Mask 5.0 12/12/16 17:30 99 Mask 5.0 12/12/16 17:20 68 14 130/85 97 Mask 5 12/12/16 17:10 36.5 68 14 149/73 97 Mask 5 12/12/16 17:00 64 14 112/77 97 Mask 10 12/12/16 16:50 69 16 123/83 96 Mask 10 12/12/16 16:40 76 16 129/82 96 Mask 10 12/12/16 16:34 36.6 80 16 174/77 96 Mask 10 12/12/16 12:44 37.1 73 18 147/90 94 Room Air Physical Exam General Appearance: WD/WN, no apparent distress Eyes: normal inspection ENT: normal ENT inspection Neck: supple Respiratory/Chest: chest non-tender, lungs clear Cardiovascular: regular rate, rhythm, no edema Abdomen: normal bowel sounds, non tender, soft Extremities: normal range of motion, non-tender Neurologic/Psychiatric: alert, oriented x 3 Skin: normal color Laboratory Results Last 24 Hours Test 12/12/16 13:25 12/12/16 16:40 12/12/16 17:59 12/12/16 21:05 Bedside Glucose 88 mg/dl 135 mg/dl 127 mg/dl 135 mg/dl Test 12/13/16 01:02 12/13/16 05:53 12/13/16 07:24 Bedside Glucose 131 mg/dl 137 mg/dl White Blood Count 11.11 K/uL Red Blood Count 4.35 M/uL Hemoglobin 12.7 g/dL Hematocrit 38.5 % Mean Corpuscular Volume 88.5 fL Mean Corpuscular Hemoglobin 29.2 pg Mean Corpuscular Hemoglobin Concent 33.0 g/dl Platelet Count 184 K/uL Mean Platelet Volume 9.9 fL Neutrophils (%) (Auto) 78.3 % Lymphocytes (%) (Auto) 15.8 % Monocytes (%) (Auto) 5.5 % Eosinophils (%) (Auto) 0.0 % Basophils (%) (Auto) 0.1 % Neutrophils # (Auto) 8.70 K/uL Lymphocytes # (Auto) 1.76 K/uL Monocytes # (Auto) 0.61 K/uL Eosinophils # (Auto) 0.00 K/uL Basophils # (Auto) 0.01 K/uL RDW Standard Deviation 40.8 fL RDW Coefficient of Variation 12.7 % Immature Granulocyte % (Auto) 0.3 % Immature Granulocyte # (Auto) 0.03 K/uL Sodium Level 139 mmol/L Potassium Level 4.6 mmol/L Chloride Level 103 mmol/L Carbon Dioxide Level 24 mmol/L Anion Gap 12.0 mmol/L Blood Urea Nitrogen 16 mg/dl Creatinine 1.50 mg/dl Est Creatinine Clear Calc Drug Dose 80.0 ml/min Estimated GFR () 62.0 Estimated GFR (Non- 53.5 BUN/Creatinine Ratio 10.8 Random Glucose 144 mg/dl Estimated Average Glucose 100 mg/dl Hemoglobin A1c 5.1 % Calcium Level 8.9 mg/dl Assessment and Plan 51 y.o.M s/p laminectomy on 12.12.16 who experienced post - op letharygy and respiratoy distress 2/2/ diludid [employer]. Hospitalist service consulted for management Acute hypoxic respiratory distress - 2/2 to dilaudid [employer] - pt on bipap overnight however in no respiratory distress thi am on RA - continue to avoid IV opiates - continue home medication of norco for pain POD #1 s/p L2-L3 Lumbar Decompression Laminectomy - pain control with norco and tordol - pt/ot Anxiety - Continue Klonopin, Quetiapine, Risperidone (hs), trazodone qhs - may resume xanax if patient gets anxious as lethargy/respiratory distress is resolved Benign Familial Tremor - Continue Depakote and Propranolol DM - SSI Sleep Apnea - CPAP was ordered Full Code
[2016-12-13] MEDS: DOCUSATE SODIUM/SENNA 50/8.6MG TAB PO SCH (20:48)
[2016-12-13] MEDS: QUETIAPINE FUMARATE 100 MG TAB PO SCH (20:49)
[2016-12-13] MEDS: TRAZODONE HCL 100 MG TAB PO SCH (20:49)
[2016-12-13] MEDS: RANITIDINE HCL 150 MG TAB PO SCH (20:50)
[2016-12-13] MEDS: PRAZOSIN HCL 1 MG CAP PO SCH (20:50)
[2016-12-13] MEDS: CLONAZEPAM 0.5 MG TAB PO SCH (20:56)
[2016-12-14] MEDS: POLYETHYLENE (MIRALAX) 17 GM PACK PO SCH ×2 (05:26→12:11)
[2016-12-14 05:42] LABS: HEMATOCRIT 34.7 % (42-52); MEAN CELL VOLUME 88.3 fL (80-100); MEAN CORPUSCULAR HGB CONC 32.9 g/dl (32-36); MEAN PLATELET VOLUME 9.6 fL (7.4-10.4); PLATELET COUNT 162 K/uL (130-400); RED BLOOD COUNT 3.93 M/uL (4.7-6.1); WHITE BLOOD COUNT 12.66 K/uL (4.8-10.8)
[2016-12-14 06:19] LABS: BUN/CREATININE RATIO 16.9 (10-20); CALCIUM 8.6 mg/dl (8.5-10.1); POTASSIUM 4.7 mmol/L (3.5-5.1)
[2016-12-14] MEDS: HYDROCODONE/ACETAMI 10/325 TAB PO PRN ×2 (07:23→12:08)
[2016-12-14 07:40] VITALS: BP 118/72; PULSE 61; TEMP 36.4; O2SAT 92
[2016-12-14 07:47] VITALS: O2SAT 92
[2016-12-14] MEDS: ROSUVASTATIN CALCIUM 20 MG TAB PO SCH (08:44)
[2016-12-14] MEDS: DIVALPROEX 250 MG EXTENDED REL TAB PO SCH (08:44)
[2016-12-14] MEDS: PROPRANOLOL HCL 20 MG TAB PO SCH (08:45)
[2016-12-14] MEDS: INSULIN ASPART 100 UNITS/ML 3 ML PEN SC SCH ×2 (08:58→12:57)
[2016-12-14 11:10] VITALS: BP 118/72; PULSE 61; TEMP 36.4; O2SAT 92
--- NOTE | 2016-12-14 11:48 | DISCHARGE SUMMARY ---
PRINCIPAL DIAGNOSIS: Spinal stenosis. HOSPITAL COURSE FOLLOWS: On December 12, the patient underwent lumbar decompression and fusion, tolerated this well and taken to the orthopedic floor postoperatively. Postop day #1, he was up and ambulatory, progressing well. Postop day #2, NAGA drain decreased appropriately, pain well controlled. Subsequently discharged home. Discharge orders and instructions found on the chart for further review.
[2016-12-14 11:50] VITALS: BP 110/82; PULSE 52; TEMP 36.6; O2SAT 94
--- NOTE | 2016-12-14 14:22 | Hospitalist Progress Note ---
Hospitalist Progress Note Date of Service Dec 14, 2016. Subjective Pt evaluation today including: conversation w/ patient, physical exam, chart review, lab review, review of studies, review of inpatient medication list Patient had no acute issues overnight Denies any chest pain, abdominal pain , SOB Constitutional: No fever Eyes: No worsening of vision ENT: No hearing loss Respiratory: No cough, No shortness of breath Cardiovascular: No chest pain, No edema Abdomen: No constipation, No pain, No vomiting Musculoskeletal: No joint pain Male : No dysuria Neurologic: No memory loss Psychiatric: No depression symptoms Heme: No abnormal bleeding/bruising Endo: No fatigue Skin: No rash Medications Current Inpatient Medications Medications (Trade) Dose Ordered Sig/Mona Route Start Time Stop Time Status Last Admin Dose Admin Promethazine HCl/ Sodium Chloride (Phenergan Inj/ Nss 50ml) 50.5 ml @ 202 mls/hr Q6H PRN IV 12/12/16 16:15 01/11/17 16:14 Ondansetron HCl (Zofran Inj) 4 mg Q6H PRN IV 12/12/16 16:15 01/11/17 16:14 Metoclopramide HCl (Reglan Inj) 10 mg Q6H PRN IV 12/12/16 16:15 01/11/17 16:14 Lorazepam 0.5 mg 0.5 mg Q8H PRN PO 12/12/16 16:15 01/11/17 16:14 Lorazepam/Syringe (Ativan Inj/ Syringe) 0.25 ml @ 1 mls/min Q8H PRN IV 12/12/16 16:15 01/11/17 16:14 Future Hold Pneumococcal Polysaccharide Vaccine 1 ea PRN PRN N/A 12/12/16 16:15 01/11/17 16:14 Influenza Virus Vacc Triv Types A&B 1 ea PRN PRN N/A 12/12/16 16:15 01/11/17 16:14 Polyethylene (Miralax Powder Packet) 17 gm Q6 PO 12/14/16 06:00 01/13/17 05:59 12/14/16 12:11 17 GM Bisacodyl (Dulcolax Supp) 10 mg DAILY PRN SC 12/12/16 16:15 01/11/17 16:14 Magnesium Hydroxide (Milk Of Magnesia Susp) 30 ml DAILY PRN PO 12/12/16 16:15 01/11/17 16:14 Hydromorphone HCl (Dilaudid Inj) 0.5-1mg prn moder... Q3H PRN IV 12/13/16 06:00 12/27/16 05:59 Oxycodone HCl (Roxicodone Immediate Rel Tab) 5-10mg prn moderate to sev... Q4H PRN PO 12/13/16 06:00 12/27/16 05:59 Acetaminophen 1000 mg 1,000 mg Q8H PRN PO 12/12/16 16:15 01/11/17 16:14 Acetaminophen (Ofirmev Iv) 100 ml @ 400 mls/hr Q8H PRN IV 12/12/16 16:15 01/11/17 16:14 Naloxone HCl (Narcan Inj) 0.1 mg Q5M PRN IV 12/12/16 16:15 01/11/17 16:14 12/13/16 04:49 0.1 MG Senna/Docusate Sodium (Senokot S Tab) 2 tab HS PO 12/12/16 21:00 01/11/17 20:59 12/13/16 20:48 2 TAB Sodium Biphosphate/ Sodium Phosphate (Fleet Enema) 132 ml ONE PRN SC 12/12/16 16:15 01/11/17 16:14 Hydroxyzine HCl (Vistaril Tab) 25 mg Q8H PRN PO 12/12/16 16:15 01/11/17 16:14 Al Hydroxide/Mg Hydroxide (Maalox Susp) 30 ml Q6H PRN PO 12/12/16 16:15 01/11/17 16:14 Famotidine (Pepcid Tab) 20 mg Q12 PRN PO 12/12/16 16:15 01/11/17 16:14 Diphenhydramine HCl (Benadryl Cap) 25 mg Q6H PRN PO 12/12/16 16:15 01/11/17 16:14 Alprazolam (Xanax Tab) 1 mg TID PRN PO 12/12/16 16:15 01/11/17 16:14 Future Hold Clonazepam (Klonopin Tab) 0.5 mg HS PO 12/12/16 21:00 01/11/17 20:59 12/13/16 20:56 0.5 MG Divalproex Sodium (Depakote Extended Rel Tab) 250 mg BID PO 12/12/16 21:00 01/11/17 20:59 12/14/16 08:44 250 MG Acetaminophen/ Hydrocodone Bitart (Tabor 10/325 Tab) 1 tab Q4H PRN PO 12/13/16 06:00 12/27/16 05:59 12/14/16 12:08 1 TAB Propranolol HCl (Inderal Tab) 20 mg BID PO 12/12/16 21:00 01/11/17 20:59 12/14/16 08:45 20 MG Quetiapine Fumarate (seroQUEL TAB) 100 mg HS PO 12/12/16 21:00 01/11/17 20:59 12/13/16 20:49 100 MG Ranitidine HCl (zANTac TAB) 150 mg HS PO 12/12/16 21:00 01/11/17 20:59 12/13/16 20:50 150 MG Risperidone (Risperdal Tab) 1 mg BID PO 12/12/16 21:00 01/11/17 20:59 Future Hold 12/12/16 22:33 1 MG Rosuvastatin Calcium (Crestor Tab) 20 mg QAM PO 12/13/16 09:00 01/12/17 08:59 12/14/16 08:44 20 MG Trazodone HCl (Desyrel Tab) 100 mg HS PO 12/12/16 21:00 01/11/17 20:59 12/13/16 20:49 100 MG Prazosin HCl (Prazosin) 1 mg HS PO 12/12/16 21:00 01/11/17 20:59 12/13/16 20:50 1 MG Miscellaneous Information (Consult Glycemic Management Pharmacy) 1 ea UD PRN N/A 12/12/16 16:56 01/11/17 16:55 Insulin Aspart (novoLOG ASPART) SLIDING SCALE ACHS SC 12/12/16 17:15 01/11/17 17:14 12/14/16 12:57 4 UNITS Glucose (Glucose 40% Gel) 15-30 GRAMS 15 GRAMS... UD PRN PO 12/12/16 17:15 01/11/17 17:14 Glucose (Glucose Chew Tab) 4-8 Tablets 4 Tabl... UD PRN PO 12/12/16 17:15 01/11/17 17:14 Dextrose (Dextrose 50% 50ML Syringe) 25-50ML OF 50% DW IV FOR... UD PRN IV 12/12/16 17:15 01/11/17 17:14 Glucagon (Glucagon Inj) 1 mg UD PRN SQ 12/12/16 17:15 01/11/17 17:14 Ketorolac Tromethamine (Toradol Inj) 30 mg Q6H PRN IV 12/13/16 08:15 12/18/16 08:14 12/13/16 08:43 30 MG Objective Vital Signs Date Time Temp Pulse Resp B/P Pulse Ox O2 Delivery O2 Flow Rate FiO2 12/14/16 11:50 36.6 52 12 110/82 94 Room Air 12/14/16 11:10 36.4 61 12 92 Room Air 12/14/16 07:47 92 Room Air 12/14/16 07:40 36.4 61 12 118/72 92 Room Air 12/14/16 07:15 Room Air 12/14/16 02:38 Room Air 12/13/16 23:36 36.6 71 16 113/63 92 Room Air 12/13/16 15:20 Room Air 12/13/16 15:13 36.9 71 16 126/71 90 Room Air Physical Exam General Appearance: WD/WN Eyes: normal inspection ENT: normal ENT inspection Neck: supple Respiratory/Chest: chest non-tender, lungs clear Cardiovascular: regular rate, rhythm, no edema Abdomen: normal bowel sounds, non tender, soft Extremities: normal range of motion, non-tender Neurologic/Psychiatric: baby doctor II-XII nml as tested, no motor/sensory deficits, alert, oriented x 3 Skin: normal color, warm/dry Lymphatic: no adenopathy Laboratory Results Last 24 Hours Test 12/13/16 16:41 12/13/16 21:11 12/14/16 05:15 12/14/16 08:36 Bedside Glucose 144 mg/dl 158 mg/dl 119 mg/dl White Blood Count 12.66 K/uL Red Blood Count 3.93 M/uL Hemoglobin 11.4 g/dL Hematocrit 34.7 % Mean Corpuscular Volume 88.3 fL Mean Corpuscular Hemoglobin 29.0 pg Mean Corpuscular Hemoglobin Concent 32.9 g/dl RDW Standard Deviation 41.2 fL RDW Coefficient of Variation 12.7 % Platelet Count 162 K/uL Mean Platelet Volume 9.6 fL Sodium Level 143 mmol/L Potassium Level 4.7 mmol/L Chloride Level 105 mmol/L Carbon Dioxide Level 30 mmol/L Anion Gap 8.0 mmol/L Blood Urea Nitrogen 17 mg/dl Creatinine 1.00 mg/dl Est Creatinine Clear Calc Drug Dose 120.0 ml/min Estimated GFR () 101.3 Estimated GFR (Non- 87.4 BUN/Creatinine Ratio 16.9 Random Glucose 117 mg/dl Calcium Level 8.6 mg/dl Test 12/14/16 11:28 Bedside Glucose 91 mg/dl Assessment and Plan 51 y.o.M s/p laminectomy on 12.12.16 who experienced post - op letharygy and respiratoy distress 2/2/ diludid [employer]. 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
== END 2016-12-14 14:35 | disposition home or self-care (01) | DRG 460 ==
LOC: ENRESERVTM → ENRESERVDT → C.ACU 12:06 → C.3E 16:10
PROVIDERS: ADMIT Orthopaedic Surgery Orthopaedic Surgery of the Spine; ATTEND Orthopaedic Surgery Orthopaedic Surgery of the Spine
PROC: 3E0U0GB Introduction of Recombinant Bone Morphogenetic Protein into Joints, Open Approach (ICD-10-PCS; principal; 2016-12-12 13:30)
PROC: 0SG00AJ Fusion of Lumbar Vertebral Joint with Interbody Fusion Device, Posterior Approach, Anterior Column, Open Approach (ICD-10-PCS; principal; 2016-12-12 13:30)
PROC: 0ST20ZZ Resection of Lumbar Vertebral Disc, Open Approach (ICD-10-PCS; principal; 2016-12-12 13:30)
PROC: 0SG0071 Fusion of Lumbar Vertebral Joint with Autologous Tissue Substitute, Posterior Approach, Posterior Column, Open Approach (ICD-10-PCS; principal; 2016-12-12 13:30)
DX: M48.06 Spinal stenosis, lumbar region (principal); K21.9 Gastro-esophageal reflux disease without esophagitis; E78.5 Hyperlipidemia, unspecified; F41.9 Anxiety disorder, unspecified; G47.33 Obstructive sleep apnea (adult) (pediatric); R06.09 Other forms of dyspnea; R09.02 Hypoxemia; T40.2X5A Adverse effect of other opioids, initial encounter; Y92.239 Unspecified place in hospital as the place of occurrence of the external cause; E11.9 Type 2 diabetes mellitus without complications; E78.00 Pure hypercholesterolemia, unspecified; M51.26 Other intervertebral disc displacement, lumbar region; M45.6 Ankylosing spondylitis lumbar region; E66.9 Obesity, unspecified; F32.9 Major depressive disorder, single episode, unspecified; R20.0 Anesthesia of skin; M54.10 Radiculopathy, site unspecified; F40.00 Agoraphobia, unspecified; G25.0 Essential tremor; Z79.899 Other long term (current) drug therapy; Z79.891 Long term (current) use of opiate analgesic; Z68.39 Body mass index [BMI] 39.0-39.9, adult; Z79.84 Long term (current) use of oral hypoglycemic drugs

== ENCOUNTER → 2017-04-29 | Outpatient (CLI) | payer OTHER ==
[~2017-04-29] MED LIST changes: -CEFAZOLIN 3000 MG/65 ML D5W IV SCH; -FENTANYL CITRATE INJ 50 MCG/1 ML 2 ML VIAL ONE; -MIDAZOLAM HCL 1 MG/ML 2ML VIAL ONE; +RXC5 PO
[2017-04-29 09:43] LABS: BASO % 0.6 %; BASO ABS # 0.03 K/uL (0-0.2); COMPLETE YES; EOS % 1.7 %; HEMATOCRIT 42.9 % (42-52); IG% 0.2 %; LYMPH % 48.6 %; LYMPH ABS # 2.59 K/uL (1.2-3.4); MEAN CELL VOLUME 86.5 fL (80-100); MEAN CORPUSCULAR HEMOGLOBIN 28.4 pg (25-34); MEAN CORPUSCULAR HGB CONC 32.9 g/dl (32-36); MEAN PLATELET VOLUME 9.4 fL (7.4-10.4); MONO % 10.3 %; NEUT % 38.6 %; PLATELET COUNT 184 K/uL (130-400); RED BLOOD COUNT 4.96 M/uL (4.7-6.1); WHITE BLOOD COUNT 5.33 K/uL (4.8-10.8)
== END | disposition home or self-care (01) ==
LOC: C.LAB 08:50
PROVIDERS: ATTEND Psychiatry & Neurology Psychiatry
DX: F39 Unspecified mood [affective] disorder (principal)

== ENCOUNTER → 2017-05-31 | Outpatient (CLI) | payer OTHER ==
[2017-05-31 17:23] LABS: ALT/SGPT 27 U/L (12-78); AST/SGOT 11 U/L (15-37); BLOOD UREA NITROGEN 8 mg/dl (7-18); BUN/CREATININE RATIO 7.4 (10-20); CALCIUM 9.5 mg/dl (8.5-10.1); CARBON DIOXIDE 29 mmol/L (21-32); CHLORIDE 105 mmol/L (98-107); CHOLESTEROL 179 mg/dl (0-200); GLUCOSE 97 mg/dl (70-99); POTASSIUM 4.2 mmol/L (3.5-5.1); SODIUM 139 mmol/L (136-145)
[2017-05-31 17:26] LABS: ALB/GLOB RATIO 0.9 (0.9-2); ALKALINE PHOSPHATASE 90 U/L (45-117); CHOLESTEROL/HDL RATIO 5.8; HDL CHOLESTEROL 31 mg/dl; LDL CHOLESTEROL CALCULATED 94 mg/dl; TRIGLYCERIDES 270 mg/dl (0-150); VERY LOW DENSITY LIPOPROT CALC 54 mg/dl
[2017-06-01 07:29] LABS: ESTIMATED AVERAGE GLUCOSE 103 mg/dl; HA1C FLAG Normal (Normal)
== END | disposition home or self-care (01) ==
LOC: C.LABBFT 10:39
PROVIDERS: ATTEND Physician Assistant Medical
DX: E11.9 Type 2 diabetes mellitus without complications (principal)